=== PATIENT | male | born 1965 | race African-American/Black ===

== ENCOUNTER 2017-05-26 09:00 | Emergency (ER) | payer SELFPAY ==
[~2017-05-26] VITALS: Ht 165.1 cm; Wt 85.0 kg
[~2017-05-26 09:00] MED LIST: HYDR-3533 PO
[2017-05-26 09:01] VITALS: BP 169/98; PULSE 106; RESP 20; TEMP 99; O2SAT 100
[2017-05-26 09:16] VITALS: BP 183/107; PULSE 101; RESP 15; TEMP 99.3; O2SAT 99
[2017-05-26] MEDS ORDERED: PRED-503 PO (09:33)
[2017-05-26] MEDS ORDERED: HYDR50TA94 PO (09:33)
--- NOTE | 2017-05-26 09:33 | PD ---
HPI Chief Complaint: Skin Problem Time Seen by Provider: 09:28 Travel History International Travel<30 days: No Contact w/Intl Traveler<30days: No Traveled to known affect area: No History of Present Illness HPI Well 51-year-old man who presents to the emergency department complaining of itchy spots on his left hand, right hand, around the side of an ongoing for couple days. He thinks he maybe got bitten by mosquitoes but is not really sure. He states yesterday he had some swelling around the eye. Along with this he has noticed some discomfort in his chest. No nausea or vomiting. No shortness of breath. States he has a history of asthma but that's been going okay. He also has itchiness on his legs around his bottom. Denies any groin rash or discharge. No urinary symptoms. No other complaints. History Past Medical History Narrative Medical Asthma Past Surgical History Surgical History: No Previous Surgery Social History Alcohol Use: No Tobacco Use: No Allergies-Medications (Allergen,Severity, Reaction): Coded Allergies: No Known Allergies (Unverified , 03/23/16) Reported Meds & Prescriptions Reported Meds & Active Scripts Active No Active Prescriptions or Reported Medications Review of Systems Except as stated in HPI: all other systems reviewed are Neg Physical Exam Narrative GENERAL: Well-appearing 51-year-old man, no acute distress. SKIN: Focused skin assessment warm/dry. There is a little bit of redness and irritation on the dorsum of the left hand. There is 2 spots on the right hand on the palmar surface. There secondary excoriations on the elbows. There is no swelling or erythema that I can appreciate to the face or periorbital area. Otherwise unremarkable. HEAD: Atraumatic. Normocephalic. CARDIOVASCULAR: Regular rate and rhythm. No murmur appreciated. RESPIRATORY: No accessory muscle use. Clear to auscultation. Breath sounds equal bilaterally. GASTROINTESTINAL: Abdomen soft, non-tender, nondistended. Hepatic and splenic margins not palpable. MUSCULOSKELETAL: No obvious deformities. Data Data Last Documented VS Vital Signs Date Time Temp Pulse Resp B/P Pulse Ox O2 Delivery O2 Flow Rate FiO2 05/26/17 09:16 99.3 101 15 183/107 99 Room Air MDM Medical Decision Making Medical Screen Exam Complete: Yes Emergency Medical Condition: Yes Differential Diagnosis Bug bites, contact irritation, allergies, systemic infection with skin findings such as gonorrhea or syphilis, other Narrative Course Medical decision making 51-year-old man presents with complaints of pruritic rash, swelling around the side, and some chest tightness. Looks well. Chest tightness does not seem to be cardiac. Primary complaints to these itchy rash that he has. Patient is dark skinned, but looks to have some erythema on the left wrist, right hand, and some secondary excoriations on the arms as well. He states his back is been itchy as well. He thinks he may been bitten by something. At this point, I think we can try to treat him supportively with antihistamines and a short course of steroids. Diagnosis Primary Impression: Pruritic rash Additional Instructions: Take prednisone and Atarax as prescribed. Follow up with your primary doctor if you are not completely well in 7 days. Return to the emergency department for any worsening chest pain, trouble breathing, or any other new or worsening symptoms. Med/Other Pt SpecificInfo: Prescription(s) given Scripts Prednisone (Deltasone)20 Mg Tab20 Mg PO BID 3 Days Prov:Russell Gee MD 05/26/17 Hydroxyzine HCl 50 Mg Tab50 Mg PO TID PRN (ITCHING) #12 TAB Ref 0 Prov:Russell Gee MD 05/26/17 Disposition: 01 DISCHARGE HOME Condition: Stable Russell Gee MD May 26, 2017 09:33
[2017-05-26] MEDS ORDERED: predniSONE 20 MG TAB PO ONE (09:45)
[2017-05-26] MEDS ORDERED: hydrOXYzine HCL 25 MG TAB PO ONE (09:45)
--- NOTE | 2017-05-27 08:13 | EKG ---
Date Performed: 05/26/2017 Time Performed: 09:33:00 PTAGE: 51 years EKG: Sinus rhythm BORDERLINE LEFT AXIS DEVIATION VOLTAGE CRITERIA FOR LVH ABNORMAL ECG NO PREVIOUS TRACING DOCTOR: Cristobal Rene Interpretating Date/Time 05/27/2017 08:06:29
== END 2017-05-26 09:57 | disposition home or self-care (01) ==
LOC: NEPD 09:00
DX: L29.9 Pruritus, unspecified (principal); R07.89 Other chest pain
CPT/HCPCS: 93005; 99284; J7512